=== PATIENT | female | born 1955 | race African-American/Black ===

== ENCOUNTER 2021-11-06 08:33 | Outpatient (CLI) | payer MEDICARE, OTHER | END 2021-11-06 08:34 | disposition home or self-care (01) | LOC: CSHWCC 08:33 | PROVIDERS: ATTEND Nurse Practitioner Family | DX: S81.802D Unspecified open wound, left lower leg, subsequent encounter (principal); R60.0 Localized edema | CPT/HCPCS: 97139; G0463; 99203 ==